=== PATIENT | male | born 1945 | race Caucasian/White ===

== ENCOUNTER 2019-12-04 00:24 | Inpatient (IN) | payer MEDICARE ==
[~2019-12-04] VITALS: Ht 182.9 cm; Wt 71.0 kg
[2019-12-04] MEDS ORDERED: SODIUM CHLORIDE 0.9% 1,000 ML IV ONE (00:40)
[2019-12-04] MEDS ORDERED: ONDANSETRON HCL 4 MG/2 ML VIAL IV ONE (00:45)
[2019-12-04] MEDS ORDERED: PANTOPRAZOLE 40 MG/10 ML VIAL INJ IV ONE (00:54)
[2019-12-04] MEDS ORDERED: PANTOPRAZOLE 40mg/50ML NS AE 50 ML IV ONE (01:15)
[2019-12-04 01:20] LABS: Basophils # (auto) 0 10 ^3/uL (0-0.2); Basophils % (auto) 0.1 % (0.0-2.0); Eosinophils # (auto) 0 10 ^3/uL (0-0.8); Hematocrit 29.5 % (41.0-53.0); Hemoglobin 9.6 g/dL (13.5-17.5); Lymphocytes # (auto) 0.3 10 ^3/uL (0.4-5.4); Lymphocytes % (auto) 2.5 % (10.0-50.0); Mean Corpuscular Hemoglobin 30.4 pg (28.0-32.0); Mean Corpuscular Hgb Conc. 32.5 g/dL (32.0-36.0); Mean Corpuscular Volume 93.4 fL (80.0-100.0); Monocytes # (auto) 0.8 10 ^3/uL (0-1.3); Monocytes % (auto) 6.8 % (0.0-12.0); Neutrophils % (auto) 90.6 % (37.0-80.0); Platelet Count (auto) 197 10^3/uL (140-450); Red Blood Cells 3.16 10^6/uL (4.5-5.90); Red Cell Distribution Width 15.4 % (11.8-14.3); White Blood Cell 12.1 10^3/uL (4.4-10.8)
[2019-12-04 01:34] LABS: INR 1.18 (0.9-1.15); Partial Thromboplastin Time 30.4 sec (23.64-32.05)
[2019-12-04 01:38] LABS: Alanine Aminotransferase 7 U/L (16-61); Albumin 2.1 g/dL (3.4-5.0); Anion Gap 11 (5-15); Aspartate Aminotransferase 15 U/L (15-37); BUN/Creatinine Ratio 13.3; Blood Urea Nitrogen 47 mg/dL (7-18); Calcium 9.1 mg/dL (8.5-10.1); Carbon Dioxide 30 mmol/L (21-32); Chloride 92 mmol/L (98-107); GFR African American 22 mL/min; GFR Non-African American 18 mL/min; Glucose 146 mg/dL (74-106); Magnesium 2.1 mg/dL (1.6-2.6); Potassium 3.7 mmol/L (3.5-5.1); Sodium 133 mmol/L (136-145)
[2019-12-04 01:43] LABS: Alkaline Phosphatase 104 U/L (45-117); Bilirubin, Total 1.1 mg/dL (0.2-1.0); Total Protein 6.6 g/dL (6.4-8.2)
[2019-12-04] MEDS ORDERED: CIPROFLOXACIN 400MG/200ML 200 ML IV ONE (04:30)
[2019-12-04] MEDS ORDERED: metroNIDAZOLE 500MG/100ML 100 ML IV ONE (04:30)
[2019-12-04] MEDS ORDERED: PANTOPRAZOLE 40mg/50ML NS AE 50 ML IV SCH (06:00)
[2019-12-04] MEDS ORDERED: ONDANSETRON HCL 4 MG/2 ML VIAL IV PRN (06:00)
[2019-12-04] MEDS: metroNIDAZOLE 500MG/100ML 100 ML IV SCH ×3 (06:00→21:57)
[2019-12-04] MEDS ORDERED: ALBUMIN 5% 250 ML IV ONE ×2 (06:26→07:30)
[2019-12-04 07:35] LABS: Hematocrit 25.8 % (41.0-53.0); Hemoglobin 8.4 g/dL (13.5-17.5)
[2019-12-04] MEDS ORDERED: cefTRIAXone 1GM/50ML D5W 50 ML IV SCH (09:00)
--- NOTE | 2019-12-04 09:15 | NUR ---
Admit to [facility] admitted to [facility] via gurney on residential monitor, and portable 02. Patient transfered to bed, connected to unit monitoring and oxygen, and weighed by bedscale. Patient awake and alert. NO S/S of SOB/distress or pain. Protonix running at 8mg/hr via RT hand IV. Maintained patient NPO, patient instructed. See interventions for complete assessment. Patient oriented to Latricia sykes RN, unit, room, bed, and unit policies regarding patient care and visiting hours. All questions and concerns addressed, patient verbalized understanding. Bed locked on low position, side rails up x2, bed alarms on at all times, call stephenson within reach, instructed to call for needed assistance. Will continue to monitor.
[2019-12-04 09:25] VITALS: BP 93/55
[2019-12-04 09:30] VITALS: BP 93/55
--- NOTE | 2019-12-04 11:05 | NUR ---
WOUND CARE NOTE: IN TO SEE PATIENT AT THIS TIME PER WOUND CARE CONSULT REQUEST. PATIENT RECENTLY ADMITTED TO [facility] WITH DIAGNOSIS OF GI BLEED. CURRENT TITUS SCORE IS 12. PATIENT IS WEAK, CAN ASSIST WITH HIS TURNING/REPOSITION. PATIENT AWARE OF HIS WOUND TO THE COCCYX. PATIENT IS NOTED TO HAVE A SMALL PARTIAL THICKNESS OPEN PRESSURE INJURY NOTED TO THE COCCYX, MEASURING 0.5 X 0.5 CM. WOUND IS NOTED OVER A PINK COLLAGEN SCAR. APPLIED ZGUARD AND OPTIFOAM GENTLE SACRAL DRESSING TO WOUND. PATIENT ALSO HAS PARTIAL THICKNESS SKIN TEARS TO THE LEFT AND RIGHT FOREARMS. APPLIED THERAHONEY, OPTIFOAM GENTLE DRESSINGS. RIGHT FOOT IS NOTED TO HAVE A WELL HEALED TRANSMETATARSAL AMPUTATION STUMP SCAR NOTED. HE HAS A DFU NOTED TO THE RIGHT PLANTAR FOREFOOT. WOUNDBED IS WHITE WITH MACERATION. PERIWOUND IS DARK RED, WITH CALLOUS RING. APPLIED THERAHONEY, OPTIFOAM GENTLE DRESSING. ALL WOUNDS PHOTOGRAPHED AT THIS TIME FOR REFERENCE. ORDERED SPECIALTY AIR MATTRESS. RECOMMEND: FREQUENT TURN SCHEDULE Q 2 HOURS, PRN CONDITION PERMITS, WITH PRESSURE REDISTRIBUTION USING PILLOWS/WEDGES, BID/PRN APPLICATION WITH ZGUARD, OPTIFOAM GENTLE SACRAL DRESSING, EOD/PRN APPLICATION WITH THERAHONEY AND OPTIFOAM GENTLE DRESSINGS TO BILATERAL FOREARM SKIN TEARS AND RIGHT FOOT DFU, DIETARY CONSULT, SKIN/WOUND CARE PLAN, SPECIALTY AIR MATTRESS, CONTINUED MONITORING BY WOUND CARE TEAM. Addendum: 12/04/19 at 1401 by Esther North RN Amended: Links added.
--- NOTE | 2019-12-04 11:09 | NUR ---
Dr Ricardo at bedside. Updated on patient's status. Patient seen and examined. Received verbal order to cancel cardiology consult. Orders read back and verified. Will carry out.
--- NOTE | 2019-12-04 11:11 | NUR ---
Dr Lawrence at bedside, updated on patient's status. Patient seen and examined. Will carry out new orders.
--- NOTE | 2019-12-04 11:12 | NUR ---
Wound care Amy HARVEY at bedside.
[2019-12-04 11:49] VITALS: BP 99/56
--- NOTE | 2019-12-04 12:50 | NUR ---
Paged Dr Sawant regarding patient's HR 120's to 140's A-fib, called back, updated on patient's status. Received telephone order for Cardizem 5mg IV and cardiology consult to Dr Ngo. Orders read back and verified. Will carry out.
--- NOTE | 2019-12-04 12:53 | NUR ---
Spoke to Dr Lawrence over the phone, updated on patient's status, informed HR 120's to 140's A-fib, plan to do EGD tomorrow, patient may have clear liquid diet, NPO after midnight. Orders read back and verified. Will carry out.
[2019-12-04] MEDS ORDERED: dilTIAZem 25 MG/5 ML VIAL IV ONE (13:15)
--- NOTE | 2019-12-04 13:34 | NUR ---
Received call from patient's daughter Natty, verified with patient if medical information can be given and patient gave permission. Updated on patient's status and POC, verbalized understanding. Daughter unable to give list of patient's home medications. All questions and concerns addressed.
[2019-12-04] MEDS: cefTRIAXone 1GM/50ML D5W 50 ML IV SCH (14:44)
--- NOTE | 2019-12-04 14:45 | NUR ---
Protonix drip consumed and discontinued.
[2019-12-04 15:53] VITALS: BP 101/48
--- NOTE | 2019-12-04 16:17 | NUR ---
Dr Ngo at bedside, updated on patient's status. Patient seen and examined. Received verbal order for echocardiogram. Orders read back and verified. Will carry out.
--- NOTE | 2019-12-04 17:00 | NUR ---
Patient urine incontinent with skin breakdown. Refused laguerre catheter insertion and states "I had them twice and they're feel horrible, last time they did the external the one that they place around the penis." Will try condom catheter.
--- NOTE | 2019-12-04 17:30 | NUR ---
Patient transferred to specialty bed. Fall precautions in placed. Patient tolerated well.
--- NOTE | 2019-12-04 17:55 | NUR ---
Patient's HR 130's to 140's, paged Dr Ngo. Awaiting call back.
--- NOTE | 2019-12-04 18:15 | NUR ---
EKG done at bedside showed sinus tachycardia and A-fib RVR. Awaiting call back from Dr Ngo.
--- NOTE | 2019-12-04 18:20 | NUR ---
Patient assessed and determined to be in need of laguerre catheter. Patient refused laguerre catheter insertion. Condom catheter placed.
--- NOTE | 2019-12-04 18:38 | NUR ---
Re-paged Dr Ngo, awaiting call back.
[2019-12-04 20:00] VITALS: BP 123/66
--- NOTE | 2019-12-04 20:00 | NUR ---
SHIFT OPENING NOTE RECEIVED PATIENT AWAKE, ALERT AND ORIENTED X3. NO SOB, DISTRESS OR PAIN NOTED. ON 2L N/C. CONDOM CATH IN PLACE, NO URINE OUTPUT NOTED YET. ON SPECIALTY MATTRESS. PHYSICAL ASSESSMENT COMPLETED, SEE INTERVENTIONS. INSTRUCTED ON POC AND TO CALL FOR ASSIST NEEDED. BED IS IN THE LOWEST POSITION WITH SIDE RAILS UP X2, CALL LIGHT IS WITHIN REACH.
[2019-12-04] MEDS: PANTOPRAZOLE 40 MG/10 ML VIAL INJ IV SCH (21:58)
[2019-12-05 00:04] VITALS: BP 117/51
--- NOTE | 2019-12-05 01:00 | NUR ---
ROUNDS PATIENT IS QUIETLY LAYING IN BED SLEEPING. NO SOB, DISTRESS OR PAIN NOTED. ON 4L N/C. WILL CONTINUE TO CLOSELY MONITOR.
[2019-12-05 03:54] VITALS: BP 116/51
--- NOTE | 2019-12-05 05:15 | NUR ---
MORNING HYGIENE CARE FULL BED BATH PERFORMED USING WARM SOAPY WASH CLOTHES. GOWN CHANGED. FULL LINEN CHANGE. PATIENT REPOSITIONED FOR COMFORT. TOLERATED IT WELL.
[2019-12-05] MEDS: metroNIDAZOLE 500MG/100ML 100 ML IV SCH ×3 (05:41→21:04)
[2019-12-05 05:47] LABS: Albumin 2.1 g/dL (3.4-5.0); BUN/Creatinine Ratio 15.6; Calcium 8.1 mg/dL (8.5-10.1); Potassium 3.5 mmol/L (3.5-5.1)
[2019-12-05 05:49] LABS: Bilirubin, Total 0.9 mg/dL (0.2-1.0); Total Protein 5.3 g/dL (6.4-8.2)
--- NOTE | 2019-12-05 06:55 | NUR ---
END OF SHIFT PATIENT IS QUIETLY LAYING IN BED SLEEPING. NO SOB OR DISTRESS NOTED. WILL GIVE REPORT AND ENDORSE CARE TO THE DAY SHIFT RN.
[2019-12-05 07:40] VITALS: BP 130/59
--- NOTE | 2019-12-05 07:50 | NUR ---
OPENING SHIFT NOTE: Received report from NOC RNRosie. Assumed care of patient. Received patient lying in bed, asleep on a specialty mattress, connected to bedside monitor with no s/s of distress. Patient is A&Ox4, denies pain. Patient currently NPO for possible EGD today with Dr Lawrence once patient is cleared by cardiology, Dr Ngo. Patient on RA with O2 sats 99%. Patient with two PIVs, both patent and flushes well. Bustillos draining to gravity with clear yellow urine. Bed in lowest position, rails x2 up and call light within reach. Updated on plan of care and will continue to monitor q1 hr/PRN.
[2019-12-05] MEDS ORDERED: LIDOCAINE VISCOUS 2% 15ML UD ONE (08:30)
[2019-12-05] MEDS ORDERED: FLUMAZENIL 0.1 MG/ML INJ 10ML MDV IV ONE (08:30)
[2019-12-05] MEDS ORDERED: SODIUM CHLORIDE LOCK 10 ML ONE (08:30)
[2019-12-05] MEDS ORDERED: NALOXONE HCL 0.4 MG/ML VIAL ONE (08:30)
[2019-12-05] MEDS ORDERED: MIDAZOLAM HCL 5 MG/ML-1ML VIAL ONE (08:31)
[2019-12-05] MEDS ORDERED: diphenhdrAMINE HCL 50 MG/1 ML VL ONE (08:31)
[2019-12-05] MEDS ORDERED: fentaNYL CITRATE 100 MCG/2 ML VL ONE (08:31)
--- NOTE | 2019-12-05 09:18 | NUR ---
T/C from Dr Ngo. Orders received for ECHO stat for cardiac clearance for EGD due to intermediate risk. Orders placed and contacted Rosa Isela underwriting technician.
[2019-12-05] MEDS: cefTRIAXone 1GM/50ML D5W 50 ML IV SCH (09:29)
[2019-12-05] MEDS: PANTOPRAZOLE 40 MG/10 ML VIAL INJ IV SCH ×2 (09:29→21:04)
[2019-12-05 09:33] LABS: Basophils # (auto) 0 10 ^3/uL (0-0.2); Basophils % (auto) 0.1 % (0.0-2.0); Eosinophils # (auto) 0 10 ^3/uL (0-0.8); Eosinophils % (auto) 0.2 % (0.0-7.0); Hematocrit 26.2 % (41.0-53.0); Hemoglobin 8.6 g/dL (13.5-17.5); Lymphocytes # (auto) 0.3 10 ^3/uL (0.4-5.4); Mean Corpuscular Hemoglobin 30.8 pg (28.0-32.0); Mean Corpuscular Hgb Conc. 32.8 g/dL (32.0-36.0); Mean Corpuscular Volume 93.9 fL (80.0-100.0); Monocytes # (auto) 0.5 10 ^3/uL (0-1.3); Monocytes % (auto) 6.6 % (0.0-12.0); Neutrophils % (auto) 89.1 % (37.0-80.0); Platelet Count (auto) 164 10^3/uL (140-450); Red Blood Cells 2.79 10^6/uL (4.5-5.90); Red Cell Distribution Width 15.2 % (11.8-14.3); White Blood Cell 7.9 10^3/uL (4.4-10.8)
--- NOTE | 2019-12-05 09:40 | NUR ---
Rosa Isela, ophthalmic medical technician at bedside.
[2019-12-05 11:45] VITALS: BP 103/52
--- NOTE | 2019-12-05 13:20 | NUR ---
Patient to preop for EGD via bed on director of cardiac rehabilitation escorted by CANDICE Arias and Dr Lawrence.
[2019-12-05] MEDS ORDERED: BENZOCAINE (DENTAL) 20 % SPRAY 60ML MT ONE (13:30)
--- NOTE | 2019-12-05 13:30 | NUR ---
T/C from Dr Ngo. Per MD patient is at an intermediate risk cardiac gama for EGD. Patient has spoken to Dr Lawrence regarding patient and cleared him for procedure.
--- NOTE | 2019-12-05 13:41 | NUR ---
T/C from CANDICE Arias. EGD was postponed due to patient not being on an antiarrhythmic/rate control medication. Will notify Dr Ngo.
--- NOTE | 2019-12-05 14:03 | NUR ---
Patient's HR 140-160 and appears afib RVR. No PRN medications noted. Paged Dr Ngo for orders.
[2019-12-05] MEDS ORDERED: METOPROLOL TARTRATE 25 MG TAB PO ONE (14:30)
--- NOTE | 2019-12-05 14:30 | NUR ---
Dr Ngo at bedside to see patient. Orders received.
[2019-12-05 15:45] VITALS: BP 112/54
--- NOTE | 2019-12-05 19:15 | NUR ---
CLOSING SHIFT NOTE: Patient resting in bed, watching tv. No s/s of distress. Patient has been speaking with via phone. Plan for patient to be NPO after MN for EGD tomorrow. Report given to NOC Rosie HARVEY.
[2019-12-05 20:00] VITALS: BP 100/65
[2019-12-05] MEDS: METOPROLOL TARTRATE 25 MG TAB PO SCH (21:05)
[2019-12-06] VITALS: BP 101/63
[2019-12-06 04:00] VITALS: BP 114/51
--- NOTE | 2019-12-06 04:35 | NUR ---
MORNING HYGIENE CARE FULL BED BATH PERFORMED USING WARM SOAPY WASH CLOTHES. GOWN CHANGED. JOSEPH AND CLARY CARE DONE. PARTIAL LINEN CHANGED. PATIENT REPOSITIONED FOR COMFORT. TOLERATED IT WELL.
[2019-12-06] MEDS: metroNIDAZOLE 500MG/100ML 100 ML IV SCH ×3 (04:59→23:03)
[2019-12-06] MEDS: METOPROLOL TARTRATE 25 MG TAB PO SCH ×3 (05:00→23:04)
--- NOTE | 2019-12-06 07:10 | NUR ---
END OF SHIFT PATIENT IS QUIETLY LAYING IN BED SLEEPING. NO SOB OR DISTRESS NOTED. WILL GIVE REPORT AND ENDORSE CARE TO THE DAY SHIFT RN.
--- NOTE | 2019-12-06 07:40 | NUR ---
OPENING SHIFT NOTE: Received report from NOC RNRosie. Assumed care of patient. Received patient lying in bed, asleep on a specialty mattress, connected to bedside monitor with no s/s of distress. Patient is A&Ox4, denies pain. Patient currently NPO for possible EGD today with Dr Lawrence. Patient on 2L NC with O2 sats 98%. Patient with two PIVs, both patent and flushes well. Bustillos draining to gravity with clear yellow urine. Bed in lowest position, rails x2 up and call light within reach. Updated on plan of care and will continue to monitor q1 hr/PRN.
[2019-12-06 07:57] LABS: Basophils # (auto) 0 10 ^3/uL (0-0.2); Basophils % (auto) 0.2 % (0.0-2.0); Eosinophils # (auto) 0 10 ^3/uL (0-0.8); Eosinophils % (auto) 0.1 % (0.0-7.0); Hematocrit 27.6 % (41.0-53.0); Hemoglobin 8.9 g/dL (13.5-17.5); Lymphocytes # (auto) 0.3 10 ^3/uL (0.4-5.4); Lymphocytes % (auto) 2.8 % (10.0-50.0); Mean Corpuscular Hemoglobin 30.9 pg (28.0-32.0); Mean Corpuscular Hgb Conc. 32.2 g/dL (32.0-36.0); Mean Corpuscular Volume 95.8 fL (80.0-100.0); Monocytes # (auto) 0.7 10 ^3/uL (0-1.3); Monocytes % (auto) 6.5 % (0.0-12.0); Neutrophils # (auto) 9.7 10 ^3/uL (1.6-8.6); Neutrophils % (auto) 90.4 % (37.0-80.0); Platelet Count (auto) 170 10^3/uL (140-450); Red Blood Cells 2.88 10^6/uL (4.5-5.90); Red Cell Distribution Width 15.6 % (11.8-14.3); White Blood Cell 10.7 10^3/uL (4.4-10.8)
[2019-12-06 08:00] VITALS: BP 106/48
[2019-12-06] MEDS: cefTRIAXone 1GM/50ML D5W 50 ML IV SCH (09:00)
[2019-12-06] MEDS: PANTOPRAZOLE 40 MG/10 ML VIAL INJ IV SCH ×2 (10:00→23:03)
--- NOTE | 2019-12-06 10:00 | NUR ---
Attempted to take patient via bed to recovery/preop for EGD. Was informed by CANDICE Toscano and Dr Lawrence that anesthesia, Dr Oconnell is not comfortable with patient's status and is cancelling procedure. Per Dr Lawrence, order given to continue with clear liquid diet and transfer to [facility] due to anesthesia cancelling procedure multiple times.
--- NOTE | 2019-12-06 10:20 | NUR ---
T/C from Dr Last. Updated MD on reason for admission, previous consult and how patient is T [facility] dialysis patient. MD to contact dialysis nurses.
--- NOTE | 2019-12-06 10:30 | NUR ---
Dr Luther Claire at bedside to see patient. Orders received.
--- NOTE | 2019-12-06 10:44 | NUR ---
Dialysis nurses, Kenzie and Shayna at bedside. Patient is a patient of Dr Kumar/Dr Russo with [facility]. CMP is still pending. Dialysis orders received from Dr Kumar by CANDICE Espino.
[2019-12-06 10:47] LABS: Calcium 8.5 mg/dL (8.5-10.1); Potassium 3.5 mmol/L (3.5-5.1)
[2019-12-06 10:51] LABS: BUN/Creatinine Ratio 15.7; Bilirubin, Total 0.9 mg/dL (0.2-1.0); Total Protein 5.7 g/dL (6.4-8.2)
[2019-12-06] MEDS ORDERED: SODIUM CHL 0.9% 1000 ML BAG XX ONE (11:00)
[2019-12-06 12:00] VITALS: BP 110/63
--- NOTE | 2019-12-06 13:47 | NUR ---
Notified by Kenzie territory representative, that treatment has been stopped due to low BP 85/61 and patient stating he feels 'scared'. Laid patient flat while outside sales executive removed access and cleaned up machine. ~2100 ml removed, awaiting for actual amounts.
--- NOTE | 2019-12-06 14:00 | NUR ---
T/C from patient's . Updated on plan of care.
--- NOTE | 2019-12-06 14:06 | NUR ---
Dialysis treatment complete. 2100ml removed. BP 107/61. Patient remains lying flat. No complaints of pain. Patient remains A&Ox4.
[2019-12-06 16:00] VITALS: BP 117/42
--- NOTE | 2019-12-06 19:05 | NUR ---
CLOSING SHIFT NOTE: Patient resting in bed, watching tv. No s/s of distress. Patient has been speaking with via phone throughout day. Report given to NOC Clara HARVEY.
[2019-12-06 20:00] VITALS: BP 109/51
[2019-12-06] MEDS ORDERED: EPOETIN ALFA 10,000 UNIT/1 ML VIAL SC ONE (21:00)
--- NOTE | 2019-12-06 21:48 | NUR ---
Pt stable, requested sleep aid. paged, new order for Restoril qhs prn. Will continue to monitor.
[2019-12-06] MEDS: TEMAZEPAM 15 MG CAP PO PRN (23:04)
[2019-12-07] VITALS: BP_SYST 110; BP_SYST 93; BP_DIAS 47; BP_DIAS 50
[2019-12-07 04:00] VITALS: BP 100/58
[2019-12-07] MEDS: metroNIDAZOLE 500MG/100ML 100 ML IV SCH ×3 (06:00→21:55)
[2019-12-07 06:01] LABS: Basophils # (auto) 0 10 ^3/uL (0-0.2); Eosinophils # (auto) 0 10 ^3/uL (0-0.8); Eosinophils % (auto) 0.3 % (0.0-7.0); Monocytes # (auto) 0.7 10 ^3/uL (0-1.3)
[2019-12-07 06:05] LABS: Calcium 8.2 mg/dL (8.5-10.1); Potassium 3.7 mmol/L (3.5-5.1)
[2019-12-07 06:08] LABS: Basophils % (auto) 0.2 % (0.0-2.0); Hematocrit 27.3 % (41.0-53.0); Hemoglobin 8.9 g/dL (13.5-17.5); Lymphocytes # (auto) 0.3 10 ^3/uL (0.4-5.4); Lymphocytes % (auto) 2.5 % (10.0-50.0); Mean Corpuscular Hemoglobin 30.9 pg (28.0-32.0); Mean Corpuscular Hgb Conc. 32.6 g/dL (32.0-36.0); Mean Corpuscular Volume 94.6 fL (80.0-100.0); Neutrophils # (auto) 11.1 10 ^3/uL (1.6-8.6); Platelet Count (auto) 173 10^3/uL (140-450); Red Blood Cells 2.88 10^6/uL (4.5-5.90); Red Cell Distribution Width 15.2 % (11.8-14.3); White Blood Cell 12.2 10^3/uL (4.4-10.8)
[2019-12-07 06:10] LABS: BUN/Creatinine Ratio 13.9; Bilirubin, Total 0.9 mg/dL (0.2-1.0); Total Protein 5.6 g/dL (6.4-8.2)
[2019-12-07] MEDS: METOPROLOL TARTRATE 25 MG TAB PO SCH ×3 (06:45→21:56)
--- NOTE | 2019-12-07 07:40 | NUR ---
OPENING SHIFT NOTE: Received report from NOC RNClara. Assumed care of patient. Received patient lying in bed, asleep on a specialty mattress, connected to bedside monitor with no s/s of distress. Patient is A&Ox4, denies pain. Patient on 2L NC with O2 sats 98%. Patient with two PIVs, both patent and flushes well. Bustillos draining to gravity with clear yellow urine. Bed in lowest position, rails x2 up and call light within reach. Updated on plan of care and will continue to monitor q1 hr/PRN.
[2019-12-07 08:00] VITALS: BP 108/48
--- NOTE | 2019-12-07 08:08 | NUR ---
Pt remained stable this shift. Tolerated sleep aid well. No S/S of distress. Report given, care endorsed. Repositioned q2 hours and on specialty mattress.
--- NOTE | 2019-12-07 09:26 | NUR ---
Dr Luther Claire at bedside. Orders received.
[2019-12-07] MEDS: PANTOPRAZOLE 40 MG/10 ML VIAL INJ IV SCH ×2 (09:59→21:55)
[2019-12-07] MEDS: cefTRIAXone 1GM/50ML D5W 50 ML IV SCH (09:59)
--- NOTE | 2019-12-07 10:35 | NUR ---
Prasanna PT at bedside.
--- NOTE | 2019-12-07 11:00 | NUR ---
Patient sitting up in chair after working with physical therapy.
--- NOTE | 2019-12-07 11:09 | NUR ---
Dr Kumar at bedside to see patient. Updated MD on patient status and plan of care.
[2019-12-07 11:57] VITALS: BP 136/88
--- NOTE | 2019-12-07 12:40 | NUR ---
Anshul PT at bedside assisting patient back into bed.
[2019-12-07 16:00] VITALS: BP 103/44
--- NOTE | 2019-12-07 16:30 | NUR ---
Spoke to patient's on the phone. Updated on plan of care.
--- NOTE | 2019-12-07 17:06 | NUR ---
Spoke to patient about current plan of care. Patient stating that he misses his and wants to go back to [facility] where his is at right now. Explained to patient that he still hasn't had EGD done and Dr Lawrence wants him to be transferred to [facility] to have procedure done because of his cardiac risk. Patient verbalized understanding. Patient thought that because he wasn't experiencing any more nausea or vomiting that he was better and wound go home.
--- NOTE | 2019-12-07 18:54 | NUR ---
CLOSING SHIFT NOTE: Patient resting in bed, watching tv. No s/s of distress. Patient has been speaking with via phone throughout day and states he wants to go back to [facility]. Patient aware that Dr Lawrence wants patient to go to [facility] for EGD. Report given to NOC RNClara.
[2019-12-07 20:00] VITALS: BP 109/42
[2019-12-07] MEDS: TEMAZEPAM 15 MG CAP PO PRN (21:59)
[2019-12-08] VITALS: BP 93/47
[2019-12-08] MEDS ORDERED: HYDROcodone-ACET 5/325MG TAB PO PRN (02:00)
[2019-12-08 04:00] VITALS: BP 103/52
[2019-12-08] MEDS: metroNIDAZOLE 500MG/100ML 100 ML IV SCH ×3 (06:00→21:41)
--- NOTE | 2019-12-08 07:18 | NUR ---
REPORT RECEIVED FROM PAEDODONTIST RN
[2019-12-08 07:40] VITALS: BP 110/53
--- NOTE | 2019-12-08 08:19 | NUR ---
Pt remained stable this shift. Needed pain medication for coccyx pain. After medication pt was able to sleep. Pt was turned q2 hours, has optifoam and specialty mattress. No S/S of distress. Report given to am shift, care endorsed.
[2019-12-08 08:27] LABS: Basophils # (auto) 0 10 ^3/uL (0-0.2); Basophils % (auto) 0.4 % (0.0-2.0); Eosinophils # (auto) 0.1 10 ^3/uL (0-0.8); Eosinophils % (auto) 0.5 % (0.0-7.0); Hematocrit 28.9 % (41.0-53.0); Hemoglobin 9.2 g/dL (13.5-17.5); Lymphocytes # (auto) 0.4 10 ^3/uL (0.4-5.4); Lymphocytes % (auto) 3.7 % (10.0-50.0); Mean Corpuscular Hemoglobin 30.2 pg (28.0-32.0); Mean Corpuscular Hgb Conc. 31.9 g/dL (32.0-36.0); Mean Corpuscular Volume 94.5 fL (80.0-100.0); Monocytes # (auto) 0.6 10 ^3/uL (0-1.3); Monocytes % (auto) 4.9 % (0.0-12.0); Neutrophils # (auto) 10.5 10 ^3/uL (1.6-8.6); Neutrophils % (auto) 90.5 % (37.0-80.0); Platelet Count (auto) 189 10^3/uL (140-450); Red Blood Cells 3.06 10^6/uL (4.5-5.90); Red Cell Distribution Width 15.3 % (11.8-14.3); White Blood Cell 11.6 10^3/uL (4.4-10.8)
[2019-12-08 08:42] LABS: Calcium 8.2 mg/dL (8.5-10.1); Potassium 3.4 mmol/L (3.5-5.1)
[2019-12-08 08:46] LABS: BUN/Creatinine Ratio 14.1; Bilirubin, Total 0.7 mg/dL (0.2-1.0); Total Protein 5.8 g/dL (6.4-8.2)
[2019-12-08] MEDS: PANTOPRAZOLE 40 MG/10 ML VIAL INJ IV SCH ×2 (09:51→21:41)
[2019-12-08] MEDS: cefTRIAXone 1GM/50ML D5W 50 ML IV SCH (09:51)
[2019-12-08] MEDS: METOPROLOL TARTRATE 25 MG TAB PO SCH ×2 (09:52→21:42)
--- NOTE | 2019-12-08 10:05 | NUR ---
PATIENT OUT OF BED TO BEDSIDE CHAIR FROM ASSISTANCE FROM PT
--- NOTE | 2019-12-08 11:27 | NUR ---
PATIENT BACK IN BED FALL PRECAUTIONS IN PLACE AND BED IN LOWEST POSITION. LINEN CHANGE PERFORMED PRIOR TO PATIENT BEING PLACED BACK IN BED
[2019-12-08] MEDS ORDERED: dilTIAZem 25 MG/5 ML VIAL IV ONE (11:30)
[2019-12-08 11:45] VITALS: BP 152/99
--- NOTE | 2019-12-08 11:46 | NUR ---
DR. HAJI AT BEDSIDE
--- NOTE | 2019-12-08 12:22 | NUR ---
DR. ELLIS AT BEDSIDE
--- NOTE | 2019-12-08 13:06 | NUR ---
NUTRITION ASSESSMENT NOTES Please refer to link notes of nutrition screen form filed under the intervention section of the plan of care for further details. Est. Energy Needs: 6196-2043 kcal (25-30 kcal/kg BW). Est. Protein Needs: 85-99 gms/day (1.2-1.4 gms/kg BW). Will continue to monitor pertinent labs and reassess nutrient need prn Addendum: 12/08/19 at [address] Amended: Links added.
[2019-12-08] MEDS ORDERED: dilTIAZem 25 MG/5 ML VIAL IV SCH (14:00)
[2019-12-08 15:40] VITALS: BP 115/55
--- NOTE | 2019-12-08 15:44 | NUR ---
DR. MURILLO AT BEDSIDE
--- NOTE | 2019-12-08 16:07 | NUR ---
FAMILY UPDATED ON PATIENT STATUS. ALL QUESTIONS AND CONCERNS ADDRESSED AT THIS TIME
--- NOTE | 2019-12-08 19:05 | NUR ---
OPENING NOTE PT WATCHING TELEVISION. NO DISTRESS NOTED. COMPLETE PHYSICAL ASSESSMENT UNDER INTERVENTIONS. CALL LIGHT WITHIN REACH AND BED LOCKED FOR SAFETY. WILL CONTINUE TO MONITOR.
[2019-12-08 20:04] VITALS: BP 105/52
[2019-12-08] MEDS ORDERED: dilTIAZem 120MG ER CAP PO ONE (22:15)
--- NOTE | 2019-12-08 22:16 | NUR ---
MD KENDRICK DURANT CALLED WITH NEW ORDERS. REPEATED AND VERIFIED.
[2019-12-09] VITALS: BP 99/47
--- NOTE | 2019-12-09 03:00 | NUR ---
PT SLEEPING WILL CONTINUE TO MONITOR.
[2019-12-09 04:00] VITALS: BP 99/46
--- NOTE | 2019-12-09 05:26 | NUR ---
BED BATH/LINEN CHANGE 1 BM. PATIENT CLEANED AND RESTING IN BED NOW.
[2019-12-09 05:56] LABS: Basophils # (auto) 0.1 10 ^3/uL (0-0.2); Basophils % (auto) 0.8 % (0.0-2.0); Eosinophils # (auto) 0.1 10 ^3/uL (0-0.8); Eosinophils % (auto) 0.5 % (0.0-7.0); Hematocrit 28.6 % (41.0-53.0); Hemoglobin 9.1 g/dL (13.5-17.5); Lymphocytes # (auto) 0.6 10 ^3/uL (0.4-5.4); Lymphocytes % (auto) 4.5 % (10.0-50.0); Mean Corpuscular Hgb Conc. 31.8 g/dL (32.0-36.0); Mean Corpuscular Volume 94.5 fL (80.0-100.0); Monocytes # (auto) 0.7 10 ^3/uL (0-1.3); Monocytes % (auto) 5.4 % (0.0-12.0); Neutrophils # (auto) 11.8 10 ^3/uL (1.6-8.6); Neutrophils % (auto) 88.8 % (37.0-80.0); Nucleated Red Blood Cells % 0.1 %; Platelet Count (auto) 166 10^3/uL (140-450); Red Blood Cells 3.02 10^6/uL (4.5-5.90); Red Cell Distribution Width 15.4 % (11.8-14.3); White Blood Cell 13.2 10^3/uL (4.4-10.8)
[2019-12-09 06:10] LABS: Albumin 2.1 g/dL (3.4-5.0); Calcium 8.5 mg/dL (8.5-10.1); Potassium 3.8 mmol/L (3.5-5.1)
[2019-12-09 06:14] LABS: BUN/Creatinine Ratio 14.2; Bilirubin, Total 0.7 mg/dL (0.2-1.0); Total Protein 5.8 g/dL (6.4-8.2)
[2019-12-09] MEDS: metroNIDAZOLE 500MG/100ML 100 ML IV SCH ×3 (06:39→22:00)
[2019-12-09 06:53] LABS: Hepatitis A Ab IgM Negative; Hepatitis B Core IgM Negative; Hepatitis B Surface Antigen Negative (Negative); Hepatitis C Antibody Negative (Negative)
[2019-12-09] MEDS ORDERED: SODIUM CHL 0.9% 1000 ML BAG XX ONE (07:00)
[2019-12-09 08:00] VITALS: BP 110/48
--- NOTE | 2019-12-09 08:00 | NUR ---
Opening Shift Note Assumed care of patient, awake and alert. No S/S of distress/SOB or pain. Patient saturation 98% at 4 LPM oxygen via nasal cannula. See interventions for complete assessment. Bed locked on low position, side rails up x2, bed alarms on at all times, call stephenson within reach, instructed on POC and to call for assist PRN, will continue to monitor for changes Q1hr and PRN.
[2019-12-09] MEDS: cefTRIAXone 1GM/50ML D5W 50 ML IV SCH (09:24)
[2019-12-09] MEDS: METOPROLOL TARTRATE 25 MG TAB PO SCH ×2 (09:25→22:01)
[2019-12-09] MEDS: PANTOPRAZOLE 40 MG/10 ML VIAL INJ IV SCH ×2 (09:25→22:00)
[2019-12-09] MEDS: dilTIAZem 120MG ER CAP PO SCH (09:26)
[2019-12-09] MEDS ORDERED: dilTIAZem 120MG ER CAP PO SCH (10:00)
--- NOTE | 2019-12-09 11:05 | NUR ---
Patient out of bed to bedside chair with Donald KAY, fall precautions in place. Patient tolerated well.
--- NOTE | 2019-12-09 11:07 | NUR ---
Spoke to patient's son Pino Lopes who is able to provide password, updated on patient's status and POC, verbalized understanding. All questions and concerns addressed. Call transferred to patient's room.
[2019-12-09 11:53] VITALS: BP 139/65
--- NOTE | 2019-12-09 12:18 | NUR ---
Patient back to bed from bedside chair with Donald KAY, fall precautions in place. Patient tolerated well.
--- NOTE | 2019-12-09 12:48 | NUR ---
Dr Lawrence at bedside, updated on patient's status. Patient seen and examined. Will carry out new orders.
--- NOTE | 2019-12-09 12:49 | NUR ---
Received call from patient's daughter Nadia Lees who stated "I'm the POA, I can send it to you if you want." [facility] faxed number given. Awaiting POA papers to be faxed.
--- NOTE | 2019-12-09 13:34 | NUR ---
Dr Ricardo at bedside, updated on patient's status. Patient seen and examined. Plan to discharge patient tomorrow. Received verbal order to transfer patient to Tele floor. Orders read back and verified. Will carry out.
--- NOTE | 2019-12-09 13:35 | NUR ---
POA paper works received via fax, inserted to chart.
--- NOTE | 2019-12-09 14:00 | NUR ---
IV removal RT AC IV leaking, discontinued with sterile technique, catheter fully intact. Pressure dressing applied to site. Patient tolerated procedure well.
--- NOTE | 2019-12-09 14:05 | NUR ---
IV insertion IV access obtained, via clean sterile technique by inserting 22 gauge catheter at RT upper arm after one attempt. IV secured properly. No trauma to site. Patient tolerated procedure well.
--- NOTE | 2019-12-09 15:15 | NUR ---
[facility] admitted to Telemetry unit after SBAR received. Patient oriented to JADE CELESTE primary RN, unit, [id number] and unit policies regarding patient care and visiting hours. Patient now on continuous telemetry monitoring, tele box # 82 and telemetry reading on arrival to unit is SR73. Patient placed on bedside oxygen and encouraged to call if they need something. All questions and concerns addressed, patient verbalized understanding.
--- NOTE | 2019-12-09 15:15 | NUR ---
[facility] via hospital bed on cardiac specialist and portable 02. All patient medications and personal belongings transfered with patient to receiving floor. Patient care transferred to Shayna HARVEY.
[2019-12-09] MEDS ORDERED: ENOXAPARIN SOD 30 MG/0.3 ML SYRINGE SC ONE (16:15)
--- NOTE | 2019-12-09 16:52 | NUR ---
DIALYSIS NURSE AT BEDSIDE Dialysis started, patient is stable, no signs of distress. Will continue to monitor.
[2019-12-09 17:00] VITALS: BP 117/51
--- NOTE | 2019-12-09 19:05 | NUR ---
Received report from the Day Shift RN Shayna. Initial assessment done.
--- NOTE | 2019-12-09 19:33 | NUR ---
Pt. Afib. with BBB, with occasional PVC's @ the Tele # 82 with HR = 87/min. Pt. denies any pain and denies chest pain.
--- NOTE | 2019-12-09 20:00 | NUR ---
Complete assessment done. Pt. in bed resting.
[2019-12-09] MEDS ORDERED: EPOETIN ALFA 10,000 UNIT/1 ML VIAL SC ONE (21:00)
--- NOTE | 2019-12-09 21:30 | NUR ---
HD already by the HD RN @ the bedside with 2 Liters output. Pt.'s v/s stable, afebrile with temp. = 97.5 Deg. F. Pt. denies any pain. ELIAS AV Fistula is well secured, placed sterile dsg. by the HD RN and keep it dry and intact. No s/s of bleeding @ the HD site.
[2019-12-09 22:00] VITALS: BP 111/63
--- NOTE | 2019-12-09 22:00 | NUR ---
Meds. as scheduled given/administered. Pt. given health teachings or explanation to the use and benefits of these meds. Pt. verbalized understanding.
[2019-12-09] MEDS: TEMAZEPAM 15 MG CAP PO PRN (22:27)
--- NOTE | 2019-12-09 22:27 | NUR ---
Pt. given sleeping pill -Temazepam 15 mg. po. @ 2227 Pm as pt. requested to help him sleep. Keep pt. safe and airplane and engine inspector bed. Call-light within pt.'s reach.
--- NOTE | 2019-12-09 23:27 | NUR ---
Pt. fell asleep. Maintained a quiet and room dim-lighted.
--- NOTE | 2019-12-10 02:00 | NUR ---
Pt. sleeping well with HOB up @ 30-35 degrees angle. No s/s of acute change.
--- NOTE | 2019-12-10 04:00 | NUR ---
Pt. scooted HOB Up, turned and repositioned to the sides. Afib. with BBB @ the monitor. No s/s of chest pain or discomfort. Continuous with 4L/NC. Breathing regular and unlabored with lungs sound diminished.
[2019-12-10 05:00] VITALS: BP 100/48
[2019-12-10] MEDS: metroNIDAZOLE 500MG/100ML 100 ML IV SCH ×2 (05:51→14:38)
--- NOTE | 2019-12-10 05:51 | NUR ---
Flagyl 500 mg. IVPB med. given. Pt. made aware of the antifungal IV med. as scheduled for 0600 Am. Pt. verbalized understanding. Pt. returned to sleep, keep safe and vp marketing bed. HOB up @ 30 degrees angle. 02 @ 4L/NC continuous with 02 sat. @ 98 %. Still Afib. with BBB @ the monitor.
--- NOTE | 2019-12-10 07:25 | NUR ---
Gave report to the next Day Shift CANDICE Milner. Pt. calm and resting comfortably in bed. Awaiting breakfast meal tray. Call-light within reach.
[2019-12-10 08:00] VITALS: BP 112/50
--- NOTE | 2019-12-10 08:50 | NUR ---
PROVIDED COMPLETE HYGIENE CARE, JOSEPH CATHETER CARE COMPLETED. SACRAL WOUND CLEANSED AND OPTIFOAM CHANGED, Z-GUARD APPLIED. PT TOLERATED ACTIVITY WELL. CALL LIGHT WITHIN REACH. WILL CONTINUE TO MONITOR.
[2019-12-10] MEDS: cefTRIAXone 1GM/50ML D5W 50 ML IV SCH (09:29)
[2019-12-10] MEDS: dilTIAZem 120MG ER CAP PO SCH (09:36)
[2019-12-10] MEDS: PANTOPRAZOLE 40 MG/10 ML VIAL INJ IV SCH (09:36)
[2019-12-10] MEDS: METOPROLOL TARTRATE 25 MG TAB PO SCH (09:37)
[2019-12-10] MEDS ORDERED: ENOXAPARIN SOD 30 MG/0.3 ML SYRINGE SC SCH (10:00)
[2019-12-10 12:00] VITALS: BP 106/56
--- NOTE | 2019-12-10 12:52 | NUR ---
Nutrition Follow-up Wt.: 71.00 kg Pt is currently on Renal, Cardiac diet with Mechanical Soft texture. Current PO intake has slightly improved but remains fair aeb avg 50% intake over 3 meals. Pls refer to recommendations for suggested nutrition supplement. Will continue to monitor PO intake, skin status, pertinent labs and weight trends. Will f/u in 3 to 5 days. Est. Energy Needs: 3093-4004 kcal (25-30 kcal/kg BW). Est. Protein Needs: 85-99 gms/day (1.2-1.4 gms/kg BW). Labs 12/08: BUN 47 H, Cr 3.30 H, Albumin 2.1 L, Glucose 111 H, TP 5.8 L Skin: Samir scale 14, mod risk, pressure ulcer to medial sacrum. GI: Pt had BM on 12/09/19 per varnish dipper. PES: 1) Altered nutrition related lab values r/t current medical condition aeb elevated RFTs, hypokalemia, hyperglycemia, hypoproteinemia 2) Inadequate nutrient intake r/t decreased appetite aeb avg PO intake 42% per varnish dipper Recommendations: 1) Consider oral Nepro with Carb Steady TID for nutritional supplement. 2) If Albumin continues trending down, consider Prostat 1 pkt daily, with improved RFTs. 3) Continue close supervision and feeding assistance prn during meals. 4) Continue current plan of care.
--- NOTE | 2019-12-10 14:37 | NUR ---
JOSEPH CATHETER DC'D CATHETER INTACT, NO COMPLICATIONS. PT TOLERATED PROCEDURE WELL.
--- NOTE | 2019-12-10 14:38 | NUR ---
assessment Patient is a 74 year old male who is alert and oriented. Per patients daughter Natty prior to admission patient was at [facility] skilled. Per Natty patient will return to [facility] on discharge to finish his rehab. Patients is also at [facility]. Patient has a wheelchair, fww, and oxygen. I informed Natty patient has an order to return to [facility] and Cheryl SW1 will be satisfying order.Natty verbalized understanding and agreed to discharge plan back to [facility]. Addendum: 12/10/19 at 1445 by Martha UREÑA Amended: Links added.
--- NOTE | 2019-12-10 16:36 | NUR ---
D/C planning Per SS consult for patient to return to [facility]. Faxed clinical information to facility. Per Phoebe with [facility] Ph:) patient has been accepted to room [address] Ricardo. 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 Informed CANDICE Milner.
[2019-12-10 17:01] VITALS: BP 110/55
--- NOTE | 2019-12-10 17:25 | NUR ---
MRSA NARES SPECIMEN COLLECTED, SENT TO LAB.
--- NOTE | 2019-12-10 18:07 | NUR ---
REPORTS CALLED TO [facility], REPORT GIVEN TO KIN HARVEY ALL QUESTIONS AND CONCERNS ADDRESSED.
--- NOTE | 2019-12-10 19:08 | NUR ---
DISCHARGE INSTRUCTIONS GIVEN TO PT. PT VERBALIZED UNDERSTANDING FOR Tx ORDERS, PT IN AGREEMENT WITH CARE. EDUCATIONAL MATERIAL PROVIDED, ALL QUESTIONS AND CONCERNS ADDRESSED. IV CATHETER DC'D CATHETER INATCT, NO PHLEBITIS, HEMATOMA, TELE BOX REMOVED AND RETURNED TO TELE MONITOR DEPT. WOUND PICTURE DOCUMENTATION COMPLETED.
--- NOTE | 2019-12-10 19:30 | NUR ---
pt transported out of unit safely by [facility] staff. No s/stress at time of discharge.
== END 2019-12-10 19:00 | DRG 377 ==
LOC: EDBD 00:24 → ER 00:25 → OVERFLOW 00:26 → DOU IN ICU 08:32 → TELE-WESTW 12-09 15:31
PROVIDERS: ADMIT Nurse Practitioner; ATTEND Internal Medicine
PROC: 5A1D70Z Performance of Urinary Filtration, Intermittent, Less than 6 Hours Per Day (ICD-10-PCS; principal; 2019-12-06)
PROC: 5A1D70Z Performance of Urinary Filtration, Intermittent, Less than 6 Hours Per Day (ICD-10-PCS; 2019-12-09)
DX: K29.71 Gastritis, unspecified, with bleeding (principal); N18.6 End stage renal disease; I50.43 Acute on chronic combined systolic (congestive) and diastolic (congestive) heart failure; I48.20 Chronic atrial fibrillation, unspecified; I13.2 Hypertensive heart and chronic kidney disease with heart failure and with stage 5 chronic kidney disease, or end stage renal disease; E44.0 Moderate protein-calorie malnutrition; J91.8 Pleural effusion in other conditions classified elsewhere; K57.32 Diverticulitis of large intestine without perforation or abscess without bleeding; K21.9 Gastro-esophageal reflux disease without esophagitis; K52.9 Noninfective gastroenteritis and colitis, unspecified; I88.0 Nonspecific mesenteric lymphadenitis; K86.9 Disease of pancreas, unspecified; Z99.2 Dependence on renal dialysis; I27.20 Pulmonary hypertension, unspecified; D63.8 Anemia in other chronic diseases classified elsewhere; G20 Parkinson's disease; Z89.431 Acquired absence of right foot; Z88.0 Allergy status to penicillin; Z68.21 Body mass index [BMI] 21.0-21.9, adult
CPT/HCPCS: 36415; 71045; 74176; 80053; 80074; 82270; 83605; 83735; 83880; 84484; 85014; 85018; 85025; 85610; 85730; 86850; 86900; 86901; 87040; 87081; 90935; 93005; 93306; 96365; 96367; 96375; 97110; 97116; 97163; 97530; 99291; C9113; G0378; J0696; J0885; J2250; J2405; J3490

== ENCOUNTER 2020-01-22 15:26 | Inpatient (IN) | payer MEDICARE ==
[2020-01-22] VITALS (9 sets, daily range): BP systolic 92–127; BP diastolic 25–71
[~2020-01-22] VITALS: Ht 170.2 cm; Wt 68.4 kg
[2020-01-22] MEDS: NOREPINEPHRINE 8 MG/250ML KIT 250 ML IV SCH (16:00)
[2020-01-22] MEDS ORDERED: levoFLOXacin 500MG 100 ML IV ONE (16:00)
[2020-01-22] MEDS ORDERED: AMIODARONE 450mg/250ml AE 250 ML IV SCH (16:01)
[2020-01-22 17:18] LABS: Basophils # (auto) 0 10 ^3/uL (0-0.2); Basophils % (auto) 0.1 % (0.0-2.0); Eosinophils # (auto) 0 10 ^3/uL (0-0.8); Mean Corpuscular Hgb Conc. 31.9 g/dL (32.0-36.0); Mean Corpuscular Volume 94.6 fL (80.0-100.0); White Blood Cell 13.1 10^3/uL (4.4-10.8)
[2020-01-22 17:20] LABS: Hematocrit 23.2 % (41.0-53.0); Hemoglobin 7.4 g/dL (13.5-17.5); Lymphocytes # (auto) 0.3 10 ^3/uL (0.4-5.4); Mean Corpuscular Hemoglobin 30.2 pg (28.0-32.0); Monocytes % (auto) 7.9 % (0.0-12.0); Neutrophils # (auto) 11.8 10 ^3/uL (1.6-8.6); Nucleated Red Blood Cells % 0.1 %; Platelet Count (auto) 152 10^3/uL (140-450); Red Blood Cells 2.45 10^6/uL (4.5-5.90); Red Cell Distribution Width 17.3 % (11.8-14.3)
[2020-01-22 17:29] LABS: INR 1.21 (0.9-1.15)
[2020-01-22 17:37] LABS: Alanine Aminotransferase 27 U/L (16-61); Albumin 1.6 g/dL (3.4-5.0); Anion Gap 8 (5-15); Aspartate Aminotransferase 56 U/L (15-37); BUN/Creatinine Ratio 16.8; Blood Urea Nitrogen 58 mg/dL (7-18); Calcium 7.4 mg/dL (8.5-10.1); Carbon Dioxide 30 mmol/L (21-32); Chloride 97 mmol/L (98-107); GFR African American 23 mL/min; GFR Non-African American 19 mL/min; Glucose 116 mg/dL (74-106); Potassium 3.1 mmol/L (3.5-5.1); Sodium 135 mmol/L (136-145)
[2020-01-22 17:41] LABS: Alkaline Phosphatase 605 U/L (45-117); Bilirubin, Total 7.2 mg/dL (0.2-1.0); Total Protein 5.5 g/dL (6.4-8.2)
[2020-01-22] MEDS ORDERED: PIPERACILLIN-TAZOB 3.375GM 3.375 GM in D5W 5% 100 ML IV SCH (18:00)
[2020-01-22] MEDS ORDERED: FUROSEMIDE INJECTION 100 MG in SODIUM CHL 0.9% 100 ML IV ONE (18:00)
[2020-01-22] MEDS ORDERED: DOBUTamine 1000MCG/ML 250 ML IV ONE (18:00)
[2020-01-22] MEDS ORDERED: POTASSIUM CHL 20MEQ/100ML 100 ML IV ONE ×2 (18:00→21:30)
[2020-01-22] MEDS ORDERED: MORPHINE SULFATE 4 MG/ML SYR/VIAL IV PRN (18:00)
[2020-01-22] MEDS ORDERED: POTASSIUM CHL 20 Meq TABLET PO ONE ×2 (18:00→22:00)
[2020-01-22] MEDS ORDERED: MORPHINE SULF INJ 2 MG/ML SYRINGE 1ML IV PRN (18:00)
[2020-01-22] MEDS ORDERED: NITROGLYCERIN 0.4 MG SL TAB SL PRN (18:00)
[2020-01-22] MEDS ORDERED: VANCOMYCIN PER PHARMACY 1,000 MG IV SCH (18:00)
[2020-01-22] MEDS ORDERED: MEROPENEM 1GM IVPB 100 ML IV ONE (18:30)
[2020-01-22] MEDS ORDERED: ALBUMIN 25% 100 ML IV ONE (19:00)
[2020-01-22 19:42] LABS: Urine Amorphous Crystal FEW /hpf (None Seen); Urine Bacteria NONE SEEN /hpf (None Seen); Urine Blood 2+ /uL (Negative); Urine Mucus FEW (None Seen); Urine Specific Gravity 1.021 (1.001-1.035); Urine WBC 10 /hpf (0 - 3)
[2020-01-22] MEDS ORDERED: VANCOMYCIN 1GM/250ML 250 ML IV ONE (20:30)
[2020-01-22] MEDS: POTASSIUM CHL 20 Meq TABLET PO ONE (20:45)
[2020-01-22] MEDS: HYDROCORTISONE SOD SUCC 100 MG/2ML INJ VIAL IV SCH (20:45)
[2020-01-22 21:24] LABS: Eosinophils # (auto) 0 10 ^3/uL (0-0.8); Hematocrit 24.8 % (41.0-53.0); Hemoglobin 7.9 g/dL (13.5-17.5); Lymphocytes # (auto) 0.4 10 ^3/uL (0.4-5.4); Monocytes # (auto) 0.5 10 ^3/uL (0-1.3); Neutrophils % (auto) 95.4 % (37.0-80.0); Red Blood Cells 2.63 10^6/uL (4.5-5.90); Red Cell Distribution Width 17.3 % (11.8-14.3)
[2020-01-22 21:25] LABS: Basophils # (auto) 0.1 10 ^3/uL (0-0.2); Basophils % (auto) 0.3 % (0.0-2.0); Lymphocytes % (auto) 1.9 % (10.0-50.0); Mean Corpuscular Hemoglobin 29.9 pg (28.0-32.0); Mean Corpuscular Hgb Conc. 31.7 g/dL (32.0-36.0); Mean Corpuscular Volume 94.4 fL (80.0-100.0); Monocytes % (auto) 2.4 % (0.0-12.0); Neutrophils # (auto) 18.8 10 ^3/uL (1.6-8.6); Platelet Count (auto) 237 10^3/uL (140-450); White Blood Cell 19.7 10^3/uL (4.4-10.8)
[2020-01-22 21:30] LABS: INR 1.2 (0.9-1.15); Partial Thromboplastin Time 31.6 sec (23.64-32.05)
[2020-01-22] MEDS ORDERED: AMIODARONE HCL 75 MG in D5W 5% 100 ML IV ONE (21:30)
[2020-01-22 21:36] LABS: Calcium 7.6 mg/dL (8.5-10.1); Magnesium 2.3 mg/dL (1.6-2.6); Potassium 3.5 mmol/L (3.5-5.1)
[2020-01-22] MEDS ORDERED: AMIODARONE HCL (50 MG/ ML) 3 ML VIAL IV ONE (21:42)
[2020-01-22] MEDS: FAMOTIDINE (10MG/ML) 2ML VL IV SCH (22:09)
[2020-01-22] MEDS ORDERED: ACETAMINOPHEN 650 MG RECT SUPP PR ONE (22:37)
[2020-01-22] MEDS ORDERED: ACETAMINOPHEN 650 MG RECT SUPP PR PRN (22:45)
[2020-01-22] MEDS ORDERED: LEVOTHYROXINE SODIUM 25 MCG TAB PO ONE (23:15)
[2020-01-22] MEDS ORDERED: ACETAMINOPHEN 500 MG TAB PO PRN (23:15)
[2020-01-22 23:41] LABS: CRP High Sensitivity 14.9 mg/dL (< 0.3)
[2020-01-23] VITALS (85 sets, daily range): BP systolic 65–124; BP diastolic 35–66
[2020-01-23] MEDS: HYDROCORTISONE SOD SUCC 100 MG/2ML INJ VIAL IV SCH ×2 (00:19→06:00)
[2020-01-23] MEDS ORDERED: DIGOXIN (250MCG/ML) 2 ML AMPULE IV ONE (00:30)
[2020-01-23] MEDS: NOREPINEPHRINE 8 MG/250ML KIT 250 ML IV SCH ×2 (04:00→23:00)
[2020-01-23 04:17] LABS: Hematocrit 24.9 % (41.0-53.0); Hemoglobin 7.7 g/dL (13.5-17.5); Mean Corpuscular Hemoglobin 29.6 pg (28.0-32.0); Mean Corpuscular Hgb Conc. 30.9 g/dL (32.0-36.0); Mean Corpuscular Volume 95.9 fL (80.0-100.0); Platelet Count (auto) 248 10^3/uL (140-450); Red Cell Distribution Width 17.6 % (11.8-14.3)
[2020-01-23 04:24] LABS: White Blood Cell 30.7 10^3/uL (4.4-10.8)
[2020-01-23 04:25] LABS: Band Neutrophils % (manual) 0; Basophils % (manual) 0 (0.0-2.0); Blast Cells 0; Eosinophils % (manual) 0 (0-7); Metamyelocytes % 0; Myelocytes % 0; Promyelocytes % 0; Reactive Lymphocytes 0
[2020-01-23 04:33] LABS: Albumin 2.1 g/dL (3.4-5.0); Anion Gap 16 (5-15); Blood Urea Nitrogen 59 mg/dL (7-18); Calcium 7.5 mg/dL (8.5-10.1); Carbon Dioxide 22 mmol/L (21-32); Chloride 95 mmol/L (98-107); Glucose 185 mg/dL (74-106); INR 1.36 (0.9-1.15); Magnesium 2.4 mg/dL (1.6-2.6); Partial Thromboplastin Time 33.6 sec (23.64-32.05); Potassium 4.1 mmol/L (3.5-5.1); Sodium 133 mmol/L (136-145)
[2020-01-23 04:42] LABS: Alanine Aminotransferase 45 U/L (16-61); Alkaline Phosphatase 612 U/L (45-117); Aspartate Aminotransferase 110 U/L (15-37); BUN/Creatinine Ratio 15.2; Bilirubin, Total 9.1 mg/dL (0.2-1.0); Creatine Kinase IFCC 18 U/L (39-308); GFR African American 20 mL/min; GFR Non-African American 16 mL/min; Lactate Dehydrogenase 250 U/L (87-241); Phosphorus 3.8 mg/dL (2.5-4.90)
[2020-01-23 04:53] LABS: Lymphocytes % (manual) 2 (10.0-50.0); Monocytes % (manual) 5 (0-12)
[2020-01-23] MEDS ORDERED: ALBUTEROL SULF HFA 90MCG INH 200DOSE IN SCH (06:00)
[2020-01-23] MEDS: FUROSEMIDE 20 MG/2 ML VIAL IV SCH ×2 (06:00→18:00)
[2020-01-23] MEDS: CARBIDOPA W LEVODOPA 10/100mg TABLET PO SCH ×3 (06:00→21:50)
[2020-01-23] MEDS: LEVOTHYROXINE SODIUM 25 MCG TAB PO SCH (06:37)
[2020-01-23] MEDS: MEROPENEM 1GM IVPB 100 ML IV SCH ×2 (09:29→21:31)
[2020-01-23] MEDS: METOPROLOL SUCCINATE XL 50 MG TAB PO SCH (09:29)
[2020-01-23] MEDS: POTASSIUM CHL 20 Meq TABLET PO SCH (09:30)
[2020-01-23] MEDS: dilTIAZem 120MG ER CAP PO SCH (09:30)
[2020-01-23] MEDS: APIXABAN 2.5 MG TAB PO SCH ×2 (09:30→21:50)
[2020-01-23] MEDS: FAMOTIDINE (10MG/ML) 2ML VL IV SCH (09:30)
[2020-01-23] MEDS: LORazepam 2MG/ML-1ML VIAL IV PRN (09:45)
[2020-01-23] MEDS ORDERED: ZINC SULFATE 220mg CAP or TAB PO SCH (10:00)
[2020-01-23] MEDS ORDERED: CHOLECALCIFEROL (VITD3) 1,000IU=25mCg TAB PO SCH (10:00)
[2020-01-23] MEDS ORDERED: ASCORBIC ACID 1,000 MG TAB PO SCH (10:00)
[2020-01-23] MEDS ORDERED: SODIUM BICARBONATE 8.4 % INJ 50ML VIAL IV ONE ×2 (11:10→11:15)
[2020-01-23] MEDS ORDERED: ROCURONIUM 10MG/ML 10ML VIAL IV ONE (11:10)
[2020-01-23] MEDS ORDERED: ETOMIDATE (2MG/ML) 20ML VIAL IV ONE (11:10)
[2020-01-23] MEDS ORDERED: ALBUMIN 25% 100 ML IV ONE (11:15)
[2020-01-23] MEDS ORDERED: SODIUM CHL 0.9% 1000 ML BAG XX ONE (11:15)
[2020-01-23] MEDS ORDERED: PROPOFOL 100 ML IV ONE (11:57)
[2020-01-23] MEDS: PHENYLEPHRINE IV 250 ML IV SCH ×2 (12:47→21:06)
[2020-01-23] MEDS: PROPOFOL 100 ML IV SCH (12:48)
[2020-01-23] MEDS: fentaNYL Drip 2500mCg/250mlNS 250 ML IV SCH (12:48)
[2020-01-23] MEDS ORDERED: PHENYLEPHRINE IV 250 ML IV ONE (12:49)
[2020-01-23] MEDS: VASOPRESSIN 50 UNITS in D5W 5% 247.5 ML IV SCH (14:00)
[2020-01-23] MEDS: AMIODARONE 450mg/250ml AE 250 ML IV SCH (20:10)
[2020-01-23] MEDS ORDERED: EPOETIN ALFA 10,000 UNIT/1 ML VIAL SC ONE (21:00)
[2020-01-24] VITALS (104 sets, daily range): BP systolic 72–129; BP diastolic 34–60
[2020-01-24 02:49] LABS: Urine Amorphous Crystal MOD /hpf (None Seen); Urine Bacteria MANY /hpf (None Seen); Urine Blood 3+ /uL (Negative); Urine Hyaline Cast FEW /lpf (0 - 2); Urine Specific Gravity 1.022 (1.001-1.035); Urine WBC 4 /hpf (0 - 3)
[2020-01-24] MEDS: AMIODARONE 450mg/250ml AE 250 ML IV SCH (03:03)
[2020-01-24] MEDS: NOREPINEPHRINE 8 MG/250ML KIT 250 ML IV SCH ×2 (04:01→21:23)
[2020-01-24] MEDS: PROPOFOL 100 ML IV SCH (04:01)
[2020-01-24 04:32] LABS: Eosinophils # (auto) 0 10 ^3/uL (0-0.8); Hemoglobin 7.5 g/dL (13.5-17.5)
[2020-01-24 04:36] LABS: Basophils # (auto) 0 10 ^3/uL (0-0.2); Basophils % (auto) 0.1 % (0.0-2.0); Lymphocytes # (auto) 0.4 10 ^3/uL (0.4-5.4); Lymphocytes % (auto) 1.6 % (10.0-50.0); Mean Corpuscular Hgb Conc. 31.1 g/dL (32.0-36.0); Mean Corpuscular Volume 96.5 fL (80.0-100.0); Monocytes # (auto) 1.3 10 ^3/uL (0-1.3); Monocytes % (auto) 4.9 % (0.0-12.0); Neutrophils # (auto) 24.2 10 ^3/uL (1.6-8.6); Neutrophils % (auto) 93.4 % (37.0-80.0); Platelet Count (auto) 169 10^3/uL (140-450); Red Blood Cells 2.49 10^6/uL (4.5-5.90); Red Cell Distribution Width 17.5 % (11.8-14.3); White Blood Cell 25.9 10^3/uL (4.4-10.8)
[2020-01-24 04:48] LABS: Albumin 2.2 g/dL (3.4-5.0); Calcium 7.7 mg/dL (8.5-10.1); Potassium 4.3 mmol/L (3.5-5.1)
[2020-01-24 04:52] LABS: BUN/Creatinine Ratio 14.5
[2020-01-24 05:00] LABS: Bilirubin, Total 8.4 mg/dL (0.2-1.0); Total Protein 5.5 g/dL (6.4-8.2)
[2020-01-24] MEDS: PHENYLEPHRINE IV 250 ML IV SCH ×3 (05:26→22:07)
[2020-01-24] MEDS: CARBIDOPA W LEVODOPA 10/100mg TABLET PO SCH ×3 (05:39→22:11)
[2020-01-24] MEDS: FUROSEMIDE 20 MG/2 ML VIAL IV SCH (05:39)
[2020-01-24] MEDS: LEVOTHYROXINE SODIUM 25 MCG TAB PO SCH (06:55)
[2020-01-24] MEDS: dilTIAZem 120MG ER CAP PO SCH (09:20)
[2020-01-24] MEDS: MEROPENEM 1GM IVPB 100 ML IV SCH (09:20)
[2020-01-24] MEDS: FAMOTIDINE (10MG/ML) 2ML VL IV SCH (09:20)
[2020-01-24] MEDS: APIXABAN 2.5 MG TAB PO SCH ×2 (09:21→22:00)
[2020-01-24] MEDS: POTASSIUM CHL 20 Meq TABLET PO SCH (09:21)
[2020-01-24] MEDS: METOPROLOL SUCCINATE XL 50 MG TAB PO SCH (09:21)
[2020-01-24] MEDS ORDERED: MORPHINE SULF INJ 2 MG/ML SYRINGE 1ML IV PRN (11:00)
[2020-01-24] MEDS ORDERED: ACETAMINOPHEN 650 MG RECT SUPP PR PRN (11:00)
[2020-01-24] MEDS: VASOPRESSIN 50 UNITS in D5W 5% 247.5 ML IV SCH (11:40)
[2020-01-24] MEDS: fentaNYL Drip 2500mCg/250mlNS 250 ML IV SCH (12:48)
[2020-01-24] MEDS: ALBUMIN 25% 100 ML IV SCH ×2 (15:48→17:25)
[2020-01-24] MEDS ORDERED: IOHEXOL 300 MG/ML 100ML BOTTLE IJ ONE (16:06)
[2020-01-24] MEDS ORDERED: IOHEXOL 350 MG/ML 100ML IJ ONE (16:21)
[2020-01-24] MEDS ORDERED: VANCOMYCIN 1GM/250ML 250 ML IV ONE (17:45)
[2020-01-24] MEDS: MEROPENEM 500MG IVPB 50 ML IV SCH (22:11)
[2020-01-25] VITALS (108 sets, daily range): BP systolic 67–123; BP diastolic 31–59
[2020-01-25] MEDS: AMIODARONE 450mg/250ml AE 250 ML IV SCH (02:10)
[2020-01-25] MEDS: NOREPINEPHRINE 8 MG/250ML KIT 250 ML IV SCH ×2 (04:00→19:30)
[2020-01-25 04:15] LABS: Basophils # (auto) 0 10 ^3/uL (0-0.2); Eosinophils # (auto) 0 10 ^3/uL (0-0.8); Hematocrit 21.7 % (41.0-53.0); Hemoglobin 7.1 g/dL (13.5-17.5); Lymphocytes # (auto) 0.4 10 ^3/uL (0.4-5.4); Lymphocytes % (auto) 2.5 % (10.0-50.0); Mean Corpuscular Hemoglobin 30.3 pg (28.0-32.0); Mean Corpuscular Hgb Conc. 32.8 g/dL (32.0-36.0); Mean Corpuscular Volume 92.4 fL (80.0-100.0); Monocytes # (auto) 0.3 10 ^3/uL (0-1.3); Monocytes % (auto) 2.2 % (0.0-12.0); Neutrophils # (auto) 13.6 10 ^3/uL (1.6-8.6); Neutrophils % (auto) 95.3 % (37.0-80.0); Platelet Count (auto) 134 10^3/uL (140-450); Red Blood Cells 2.35 10^6/uL (4.5-5.90); Red Cell Distribution Width 17.2 % (11.8-14.3); White Blood Cell 14.3 10^3/uL (4.4-10.8)
[2020-01-25 04:42] LABS: Albumin 2.5 g/dL (3.4-5.0); Calcium 7.7 mg/dL (8.5-10.1); Potassium 3.5 mmol/L (3.5-5.1)
[2020-01-25 04:44] LABS: BUN/Creatinine Ratio 17.6
[2020-01-25 04:46] LABS: Bilirubin, Total 8.9 mg/dL (0.2-1.0); Total Protein 5.1 g/dL (6.4-8.2)
[2020-01-25] MEDS: CARBIDOPA W LEVODOPA 10/100mg TABLET PO SCH ×3 (06:00→22:12)
[2020-01-25] MEDS: PROPOFOL 100 ML IV SCH (06:00)
[2020-01-25] MEDS: PHENYLEPHRINE IV 250 ML IV SCH (06:27)
[2020-01-25] MEDS: LEVOTHYROXINE SODIUM 25 MCG TAB PO SCH (06:44)
[2020-01-25 09:05] LABS: Hemoglobin 7.7 g/dL (13.5-17.5)
[2020-01-25 09:07] LABS: Hematocrit 23.8 % (41.0-53.0)
[2020-01-25] MEDS: APIXABAN 2.5 MG TAB PO SCH ×2 (09:45→22:12)
[2020-01-25] MEDS: FAMOTIDINE (10MG/ML) 2ML VL IV SCH (09:45)
[2020-01-25] MEDS: MEROPENEM 500MG IVPB 50 ML IV SCH (09:45)
[2020-01-25] MEDS: FLUCONAZOLE 200MG/100ML 100 ML IV SCH (09:45)
[2020-01-25] MEDS: METOPROLOL SUCCINATE XL 50 MG TAB PO SCH (09:45)
[2020-01-25] MEDS: levoFLOXacin 500MG 100 ML IV SCH (12:17)
[2020-01-25] MEDS: fentaNYL Drip 2500mCg/250mlNS 250 ML IV SCH (12:48)
[2020-01-26] VITALS (103 sets, daily range): BP systolic 78–150; BP diastolic 29–76
[2020-01-26] MEDS: NOREPINEPHRINE 8 MG/250ML KIT 250 ML IV SCH ×3 (02:00→16:00)
[2020-01-26 03:54] LABS: Basophils # (auto) 0 10 ^3/uL (0-0.2); Basophils % (auto) 0.1 % (0.0-2.0); Eosinophils # (auto) 0 10 ^3/uL (0-0.8); Hemoglobin 7.6 g/dL (13.5-17.5); Monocytes # (auto) 0.5 10 ^3/uL (0-1.3); Red Cell Distribution Width 17.3 % (11.8-14.3)
[2020-01-26 03:56] LABS: Hematocrit 22.9 % (41.0-53.0); Lymphocytes # (auto) 0.3 10 ^3/uL (0.4-5.4); Lymphocytes % (auto) 1.8 % (10.0-50.0); Mean Corpuscular Hemoglobin 30.3 pg (28.0-32.0); Mean Corpuscular Hgb Conc. 33.2 g/dL (32.0-36.0); Mean Corpuscular Volume 91.4 fL (80.0-100.0); Monocytes % (auto) 3.3 % (0.0-12.0); Neutrophils # (auto) 14.2 10 ^3/uL (1.6-8.6); Neutrophils % (auto) 94.8 % (37.0-80.0); Platelet Count (auto) 110 10^3/uL (140-450); White Blood Cell 14.9 10^3/uL (4.4-10.8)
[2020-01-26 04:11] LABS: Albumin 2.3 g/dL (3.4-5.0); Calcium 7.7 mg/dL (8.5-10.1); Potassium 3.8 mmol/L (3.5-5.1)
[2020-01-26 04:16] LABS: BUN/Creatinine Ratio 18.4; Bilirubin, Total 11.9 mg/dL (0.2-1.0)
[2020-01-26] MEDS: CARBIDOPA W LEVODOPA 10/100mg TABLET PO SCH ×3 (05:53→21:46)
[2020-01-26] MEDS: METOPROLOL SUCCINATE XL 50 MG TAB PO SCH (07:55)
[2020-01-26] MEDS: APIXABAN 2.5 MG TAB PO SCH ×2 (10:00→21:46)
[2020-01-26] MEDS: FLUCONAZOLE 200MG/100ML 100 ML IV SCH (10:19)
[2020-01-26] MEDS: FAMOTIDINE (10MG/ML) 2ML VL IV SCH (10:19)
[2020-01-26] MEDS: fentaNYL Drip 2500mCg/250mlNS 250 ML IV SCH (11:58)
[2020-01-26] MEDS: PROPOFOL 100 ML IV SCH (11:58)
[2020-01-26] MEDS: HYDROCORTISONE SOD SUCC 100 MG/2ML INJ VIAL IV SCH ×2 (13:34→21:46)
[2020-01-27] VITALS (96 sets, daily range): BP systolic 86–132; BP diastolic 33–88
[2020-01-27] MEDS: NOREPINEPHRINE 8 MG/250ML KIT 250 ML IV SCH ×2 (01:27→15:15)
[2020-01-27] MEDS ORDERED: ONDANSETRON HCL 4 MG/2 ML VIAL ONE (04:04)
[2020-01-27] MEDS ORDERED: ONDANSETRON HCL 4 MG/2 ML VIAL IV PRN (04:45)
[2020-01-27 04:47] LABS: Basophils # (auto) 0 10 ^3/uL (0-0.2); Eosinophils # (auto) 0 10 ^3/uL (0-0.8); Hematocrit 23.2 % (41.0-53.0); Hemoglobin 7.3 g/dL (13.5-17.5); Lymphocytes # (auto) 0.3 10 ^3/uL (0.4-5.4); Lymphocytes % (auto) 1.5 % (10.0-50.0); Mean Corpuscular Hemoglobin 29.6 pg (28.0-32.0); Mean Corpuscular Hgb Conc. 31.6 g/dL (32.0-36.0); Mean Corpuscular Volume 93.5 fL (80.0-100.0); Monocytes # (auto) 0.3 10 ^3/uL (0-1.3); Monocytes % (auto) 2.1 % (0.0-12.0); Neutrophils # (auto) 16.3 10 ^3/uL (1.6-8.6); Neutrophils % (auto) 96.4 % (37.0-80.0); Platelet Count (auto) 125 10^3/uL (140-450); Red Blood Cells 2.48 10^6/uL (4.5-5.90); Red Cell Distribution Width 17.2 % (11.8-14.3); White Blood Cell 16.9 10^3/uL (4.4-10.8)
[2020-01-27 05:02] LABS: Potassium 4.4 mmol/L (3.5-5.1)
[2020-01-27 05:12] LABS: Albumin 2.3 g/dL (3.4-5.0); BUN/Creatinine Ratio 18.1; Calcium 7.9 mg/dL (8.5-10.1); Total Protein 5.3 g/dL (6.4-8.2)
[2020-01-27] MEDS: HYDROCORTISONE SOD SUCC 100 MG/2ML INJ VIAL IV SCH ×3 (05:51→22:17)
[2020-01-27] MEDS: CARBIDOPA W LEVODOPA 10/100mg TABLET PO SCH ×3 (05:51→22:00)
[2020-01-27] MEDS: LEVOTHYROXINE SODIUM 25 MCG TAB PO SCH (05:52)
[2020-01-27] MEDS ORDERED: SODIUM CHL 0.9% 1000 ML BAG XX ONE (07:00)
[2020-01-27] MEDS: APIXABAN 2.5 MG TAB PO SCH ×2 (08:25→22:00)
[2020-01-27] MEDS: FLUCONAZOLE 200MG/100ML 100 ML IV SCH (10:00)
[2020-01-27] MEDS: FAMOTIDINE (10MG/ML) 2ML VL IV SCH (10:00)
[2020-01-27] MEDS: levoFLOXacin 500MG 100 ML IV SCH (10:30)
[2020-01-27] MEDS ORDERED: ALBUMIN 25% 100 ML IV ONE ×2 (12:14→12:15)
[2020-01-27] MEDS: LORazepam 2MG/ML-1ML VIAL IV PRN (18:43)
[2020-01-28] VITALS: BP 111/40
[2020-01-28 00:15] VITALS: BP 106/40
[2020-01-28 00:30] VITALS: BP 104/40
[2020-01-28 00:45] VITALS: BP 95/33
== END 2020-01-28 05:31 | disposition expired | DRG 871 ==
LOC: ER 15:26 → EDBD 15:26 → TELE 15:27 → ICU WEST 20:20
PROVIDERS: ADMIT Hospitalist; ATTEND Internal Medicine
PROC: 5A1945Z Respiratory Ventilation, 24-96 Consecutive Hours (ICD-10-PCS; principal; 2020-01-22)
PROC: 0BH17EZ Insertion of Endotracheal Airway into Trachea, Via Natural or Artificial Opening (ICD-10-PCS; 2020-01-22)
PROC: 02HV33Z Insertion of Infusion Device into Superior Vena Cava, Percutaneous Approach (ICD-10-PCS; 2020-01-22)
PROC: 04HY32Z Insertion of Monitoring Device into Lower Artery, Percutaneous Approach (ICD-10-PCS; 2020-01-23)
PROC: 0W993ZZ Drainage of Right Pleural Cavity, Percutaneous Approach (ICD-10-PCS; 2020-01-23)
PROC: 5A1D70Z Performance of Urinary Filtration, Intermittent, Less than 6 Hours Per Day (ICD-10-PCS; 2020-01-23)
PROC: 0W9B3ZZ Drainage of Left Pleural Cavity, Percutaneous Approach (ICD-10-PCS; 2020-01-24)
PROC: 5A1D70Z Performance of Urinary Filtration, Intermittent, Less than 6 Hours Per Day (ICD-10-PCS; 2020-01-27)
DX: A41.51 Sepsis due to Escherichia coli [E. coli] (principal); R65.21 Severe sepsis with septic shock; N18.6 End stage renal disease; J12.9 Viral pneumonia, unspecified; J86.9 Pyothorax without fistula; J96.21 Acute and chronic respiratory failure with hypoxia; R17 Unspecified jaundice; J90 Pleural effusion, not elsewhere classified; C25.9 Malignant neoplasm of pancreas, unspecified; E44.0 Moderate protein-calorie malnutrition; E87.4 Mixed disorder of acid-base balance; I13.2 Hypertensive heart and chronic kidney disease with heart failure and with stage 5 chronic kidney disease, or end stage renal disease; I50.22 Chronic systolic (congestive) heart failure; I95.0 Idiopathic hypotension; R00.0 Tachycardia, unspecified; I48.0 Paroxysmal atrial fibrillation; I95.9 Hypotension, unspecified; I48.91 Unspecified atrial fibrillation; D63.8 Anemia in other chronic diseases classified elsewhere; E87.6 Hypokalemia; G20 Parkinson's disease; I27.20 Pulmonary hypertension, unspecified; Z99.2 Dependence on renal dialysis; Z88.0 Allergy status to penicillin; Z80.8 Family history of malignant neoplasm of other organs or systems; Z20.828 Contact with and (suspected) exposure to other viral communicable diseases
CPT/HCPCS: 36415; 36556; 36600; 71045; 71260; 74177; 80048; 80053; 80202; 81001; 82105; 82140; 82378; 82550; 82728; 82805; 83605; 83615; 83735; 83880; 83986; 84100; 84443; 84484; 85007; 85014; 85018; 85025; 85027; 85379; 85610; 85652; 85730; 86141; 86301; 87040; 87070; 87077; 87081; 87186; 87205; 87804; 87880; 89051; 90935; 94003; 99291; A4618; G0378; J0885; J1450; J1642; J1956; J2185; J2405; J2704; J3480; J3490; J7060; P9047